=== PATIENT | male | born 1975 | race Caucasian/White ===

== ENCOUNTER → 2020-12-08 15:03 | Outpatient (BNVA) | payer BC, SELFPAY | PROVIDERS: PCP Internal Medicine; Visit Provider Specialist | DX: G44.84 Primary exertional headache (principal); G44.53 Primary thunderclap headache; R42 Dizziness and giddiness; I20.8 Other forms of angina pectoris; G11.9 Hereditary ataxia, unspecified; Z71.89 Other specified counseling; F17.210 Nicotine dependence, cigarettes, uncomplicated | CPT/HCPCS: 99205 ==

== ENCOUNTER → 2020-12-20 12:47 | Outpatient (BNVA) | payer BC, SELFPAY | PROVIDERS: PCP Internal Medicine; Visit Provider Specialist | DX: G44.53 Primary thunderclap headache (principal); G44.84 Primary exertional headache; G11.9 Hereditary ataxia, unspecified; R56.9 Unspecified convulsions; F17.200 Nicotine dependence, unspecified, uncomplicated | CPT/HCPCS: 95816 ==

== ENCOUNTER 2021-01-03 12:55 | Outpatient (CLI) | payer BC, SELFPAY ==
--- NOTE | 2021-01-03 13:00 | CT_ITS ---
WS: [id number] CT ANGIOGRAM CEREBRAL AND CAROTID ARTERIES HISTORY: R42 - Dizziness and giddiness TECHNIQUE: CT angiogram is performed of the carotid and cerebral arteries. During arterial injection imaging is obtained from the skull vertex to the aortic arch in 1.25 mm imaging. Coronal and sagittal reformats are submitted. Additional multi planar reformats of the carotid and cerebral arteries are submitted, MIP imaging also reviewed. NASCET criteria utilized. All CT scans at [facility] use at least one of these dose optimization techniques: automated exposure control; mA and/or kV ad justment per patient size (includes targeted exams where dose is matched to clinical indication); or iterative reconstruction. CONTRAST: Omnipaque 350; 95 mL IV. DLP: 2283.79 mGycm COMPARISON: None available. Noncontrast CT brain is first performed. No hemorrhage or mass effect. No enhancing masses or vascula r malformations identified by CT. Carotid Angiogram: Right carotid: Common carotid artery: Arises normally from the innominate artery. No significant plaque or stenosis. Internal carotid artery: No plaque or stenosis. External carotid artery: Patent. Left carotid: Common carotid artery: Arises normally from the aorta. No significant plaque or stenosis. Internal carotid artery: No plaque or stenosis. External carotid artery: Patent. Right vertebral artery: Unremarkable. Left vertebral artery: Unremarkable. Arises normally from the subclavian artery. Subclavian arteries: No stenosis or significant abnormality. Upper thorax: Normal. Thyroid gland: Normal. Osseous structures: Unremarkable. CEREBRAL ANGIOGRAM: Intracranial vertebral arteries: Normal with no significant atherosclerosis. Basilar artery: No significant stenosis or occlusion. No aneurysm. Intracranial Internal carotid arteries: Demonstrates no significant stenosis or plaque. Middle cerebral arteries: Normal. Anterior cerebral arteries and ACOM: Normal. Posterior cerebral arteries and PCOM's: No aneurysm or occlusions. Small caliber LEFT posterior commu nicating artery. Dural venous sinuses are normally enhancing. Mastoid air cells: Coalescence of mastoid air cells and evidence for prior mastoid surgery on the LEF T. Increased soft tissue thickening in the bed of the LEFT mastoid air cell. Paranasal sinuses: Normal. Calvarium: Normal. CT/CT angio headneck* [id number] IMPRESSION: 1. Normal carotid arteries. 2. Unremarkable [place].
[2021-01-03] MEDS: iohexol 350 mg/mL 100 mL Btl IV (13:24)
== END 2021-01-03 12:56 | disposition home or self-care (01) ==
PROVIDERS: PCP Internal Medicine; Visit Provider Specialist
DX: R42 Dizziness and giddiness (principal)
CPT/HCPCS: 70496; 70498; Q9967

== ENCOUNTER → 2021-01-05 14:56 | Outpatient (BNVA) | payer BC, SELFPAY | PROVIDERS: PCP Internal Medicine; Visit Provider Specialist | DX: G44.84 Primary exertional headache (principal); G11.9 Hereditary ataxia, unspecified; F17.200 Nicotine dependence, unspecified, uncomplicated | CPT/HCPCS: 99214 ==

== ENCOUNTER 2022-03-20 08:17 | Outpatient (CLI) | payer BC, SELFPAY ==
--- NOTE | 2022-03-20 08:33 | MR_ITS ---
WS: [id number] MRI HEAD WITH CONTRAST TECHNIQUE: Sagittal T1, T2 axial, T2 axial FLAIR, axial susceptibility weighted imaging, axial diffus ion weighted images, and coronal T2 images were obtained. Pre and post-T1 axial and post T1 coronal i mages. ADC and FSPGR images. CLINICAL INFORMATION: DIZZINESS/GIDDINESS/SYNCOPE-COLLAPSE/SLEEP APNEA COMPARISON: MRI 06/22/20 FINDINGS: No evidence of restricted diffusion to suggest acute ischemia. Ventricular system and basal cisterns are patent. A few small foci of T2 hyperintensity in the periventricular and subcortical white matter appears stable compared June 22, 2020. This is nonspecific in a patient this age but can be seen with hypertension, diabetes, collagen vascular disease, and migraine headaches. No significant parenc hymal volume loss. Normal posterior nasopharynx. No hemosiderin on susceptibly weighted images. Normal optic chiasm and pituitary infundibulum. Normal cavernous sinuses and Meckel's cave. Temporal lobes and hippocampal formations are normal in appeara nce. No abnormal gadolinium enhancement. Normal dural venous sinuses. MR/MR head wo/w con [id number] IMPRESSION: 1. No evidence of restricted diffusion to suggest acute ischemia. 2. A few small foci of T2 hyperintensity in the subcortical and periventricula r white matter appears stable compared to previous. 3. No abnormal gadolinium enhancement. 4. No significant parenchymal volume loss. 5. Mild mucosal thickening LEFT greater than RIGHT mastoid air cells. 6. No hemosiderin on susceptibly weighted images.
--- NOTE | 2022-03-20 08:33 | MR_ITS ---
WS: [id number] MRA CAROTID WITHOUT GADOLINIUM ENHANCEMENT TECHNIQUE: Axial 2-D and 3-D TOF axial images and axial, sagittal, and coronal 2-D reformatted image s. CLINICAL INFORMATION: DIZZINESS/GIDDINESS/SYNCOPE-COLLAPSE/SLEEP APNEA COMPARISON: None. FINDINGS: Codominant and patent vertebral arteries bilaterally. Proximal basilar artery is patent. RIGHT: RIGHT common carotid artery is patent. No significant RIGHT ICA stenosis. ICA is patent to the skull base. LEFT: LEFT common carotid artery is patent. No significant LEFT ICA stenosis. LEFT ICA is patent to t he skull base. MR/MR angio neck wo con [id number] IMPRESSION: 1. Codominant and patent vertebral arteries bilaterally. 2. No significant ICA stenosis bilaterally.
--- NOTE | 2022-03-20 08:33 | MR_ITS ---
WS: [id number] MRA HEAD TECHNIQUE: Axial 3-D TOF images obtained with axial images and axial, sagittal, and coronal 2-D refor matted images. CLINICAL INFORMATION: DIZZINESS/GIDDINESS/SYNCOPE-COLLAPSE/SLEEP APNEA COMPARISON: None. FINDINGS: Distal vertebral arteries are patent. Basilar artery is patent. Normal vascularity to the VISUAL DESIGN LEAD territo ry bilaterally. Both ICAs are patent at the skull base. Normal vascularity to the MANA and MCA territories bilaterally . Patent anterior communicating artery. No evidence of flow-limiting stenosis or aneurysm. MR/MR angio head wo con [id number] IMPRESSION: Normal intracranial MRA.
[2022-03-20] MEDS: gadobenate dimeglumine 20 mL vial IV (11:51)
== END 2022-03-20 08:18 | disposition home or self-care (01) ==
PROVIDERS: PCP Internal Medicine; Visit Provider Psychiatry & Neurology Neurology
DX: R42 Dizziness and giddiness (principal); R55 Syncope and collapse; G47.30 Sleep apnea, unspecified
CPT/HCPCS: 70544; 70547; 70553